=== PATIENT | female | born 1955 | race African-American/Black ===

== ENCOUNTER 2021-01-21 13:00 | Emergency (ER) | payer MEDICARE ==
[~2021-01-21 13:00] MED LIST: Iopamidol 370 76% 100 ML VIAL ONE
[2021-01-21 13:32] LABS: INR-International Normal Ratio 0.9
[2021-01-21 13:33] LABS: PTT 27.1 sec (22.9-36.1)
[2021-01-21 13:38] LABS: ALT (SGPT) 19 U/L (8-55); AST (SGOT) 19 U/L (5-34); Albumin 4.2 g/dL (3.4-4.8); Alkaline Phosphatase 46 U/L (40-110); Anion Gap 13 mmol/L (10-20); BUN (Urea Nitrogen) 12 mg/dL (9.8-20.1); Bilirubin, Total 0.7 mg/dL (0.2-1.2); Calc. Creatinine Clearance 0 mL/min (70-130); Calcium 9.7 mg/dL (7.8-10.44); Carbon Dioxide 26 mmol/L (23-31); Chloride 106 mmol/L (98-107); Globulin 3.3 g/dL (2.4-3.5); Glucose 87 mg/dL (80-115); Magnesium 1.8 mg/dL (1.6-2.6); Potassium 3.6 mmol/L (3.5-5.1); Protein, Total 7.5 g/dL (5.8-8.1); Sodium 141 mmol/L (136-145)
[2021-01-21 13:44] LABS: #Basophils 0.1 thou/uL (0.0-0.2); #Eosinphils 0.1 thou/uL (0.0-0.7); #Lymphocytes 3.2 thou/uL (1.20-3.40); #Monocytes 0.6 thou/uL (0.11-0.59); #Neutrophils 3.2 thou/uL (1.40-6.50); %Basophils 1.4 % (0.0-1.0); %Eosinophils 1.4 % (0.0-10.0); %Lymphocytes 44.1 % (21.0-51.0); %Monocytes 7.8 % (0.0-10.0); %Neutrophils 45.2 % (42.0-75.0); Mean Corpuscular HGB CONC 29.6 g/dL (32.0-36.0); Mean Corpuscular Hemoglobin 26.5 pg (27.0-31.0); Mean Corpuscular Volume 89.4 fL (78.0-98.0); Mean Platelet Volume 7.8 fL (7.4-10.4); Platelet Count 320 thou/uL (130-400); RBC Distribution Width 13.1 % (11.5-14.5); Red Blood Cell (RBC) Count 4.89 mill/uL (4.20-5.40); White Blood Cell (WBC) Count 7.1 thou/uL (4.8-10.8)
[2021-01-21] MEDS ORDERED: Nitroglycerin 2% Ointment 1 INCH/1 GM Packet ONE ×2 (15:23→22:19)
[2021-01-21 16:36] LABS: Bilirubin Negative (Negative); Blood, Urine Trace (Negative); Clarity Clear (Clear); Glucose, Urine (Dipstick) Negative (Negative); Ketone, Urine Negative (Negative); Leukocyte Negative (Negative); Nitrite Negative (Negative); Protein, Urine (Dipstick) Negative (Neg-Trace); Urobilinogen 0.2 mg/dL (Less than 2)
[2021-01-21 16:48] LABS: RBC/HPF 0-3 HPF (0-3)
[2021-01-21 17:13] LABS: Troponin I 0.015 ng/mL (< 0.028)
[2021-01-21] MEDS ORDERED: Aspirin Chewable 81 MG TAB ONE (17:34)
[2021-01-21] MEDS ORDERED: Acetaminophen 500 MG TAB ONE (17:38)
[2021-01-21 20:35] LABS: Troponin I 0.041 ng/mL (< 0.028)
[2021-01-21 21:17] LABS: SARS-CoV-2 NAA Rapid Test Not Detected (NotDetected)
[2021-01-21] MEDS ORDERED: Metoprolol Tartrate 25 MG TAB ONE (21:18)
[2021-01-22 02:04] LABS: Troponin I 0.018 ng/mL (< 0.028)
[2021-01-22] MEDS ORDERED: Nitroglycerin 2% Ointment 1 INCH/1 GM Packet ONE ×2 (04:26→04:30)
[2021-01-22] MEDS ORDERED: Acetaminophen 650 MG Suppository ONE (06:34)
[2021-01-22] MEDS ORDERED: Acetaminophen 325 MG TAB ONE (06:34)
== END 2021-01-22 06:53 | disposition short-term general hospital (02) ==
LOC: NAV ERS 13:00
DX: I16.0 Hypertensive urgency (principal); R07.9 Chest pain, unspecified; R79.89 Other specified abnormal findings of blood chemistry; Z20.822 Contact with and (suspected) exposure to COVID-19; I25.10 Atherosclerotic heart disease of native coronary artery without angina pectoris; I10 Essential (primary) hypertension; M81.0 Age-related osteoporosis without current pathological fracture; Z79.82 Long term (current) use of aspirin; Z79.899 Other long term (current) drug therapy
CPT/HCPCS: 70450; 70496; 70498; 71045; 80053; 82962; 83735; 83880; 84484 ×2; 85025; 85610; 85730; 93005; 94760; U0002; 36415; 36416; 81003; 81015; Q9967